=== PATIENT | male | born 1980 | race Caucasian/White ===

== ENCOUNTER 2023-08-25 12:29 | Outpatient (CLI) | payer MEDICAID ==
[2023-08-25] MEDS ORDERED: BARIUM SULFATE 450 ML BOTTLE PO ONE (14:44)
[2023-08-25] MEDS ORDERED: iohexoL-300 100 ML VIAL IVP ONE (14:44)
--- NOTE | 2023-08-25 15:26 | CT Report ---
PROCEDURE: ABDOMEN/PELVIS W INDICATIONS: RLQ ABD PAIN CONTRAST: 100ml omni 300 TECHNIQUE: After the administration of contrast, 5 mm thick sections acquired from the diaphragms to the symphys is. 5 mm thick coronal and sagittal reformats were acquired. For radiation dose reduction, the foll owing was used: automated exposure control, adjustment of mA and/or kV according to patient size. COMPARISON: 07/04/2015 FINDINGS: Image quality: Excellent. Lung bases and heart: Unremarkable. Liver: No solid mass. Gallbladder and biliary tree: Spleen: No splenomegaly. Pancreas: No pancreatic ductal dilation. Adrenals: No adrenal nodule. Kidneys and ureters: No hydronephrosis. No renal cystic lesion which requires follow up. No solid mas s. Bowel and peritoneum: No bowel distension. No pathologic free fluid. The appendix is normal. Lymph nodes: No central or retroperitoneal adenopathy. Vessels: No infrarenal aortic aneurysm. PELVIS Reproductive organs: Unremarkable. Bladder: No abnormal wall thickening, accounting for underdistension. Pelvic lymph nodes: No pelvic adenopathy by size criteria. Bones: No aggressive osseous abnormality. Other: No significant ventral or inguinal hernia. IMPRESSION: 1. No acute abnormality of the abdomen or pelvis. 2. Normal appendix. 3. No nephroureterolithiasis. Reviewed by: Jorden Navarro on 08/25/2023 3:24 PM PDT Approved by: Jorden Navarro on 08/25/2023 3:24 PM PDT Station ID: [id number]
== END 2023-08-25 12:30 | disposition home or self-care (01) ==
LOC: DI 12:29
PROVIDERS: ATTEND Physician Assistant
DX: R10.31 Right lower quadrant pain (principal)
CPT/HCPCS: 74177; A9270; Q9967

== ENCOUNTER 2023-09-01 08:00 | Outpatient (CLI) | payer MEDICAID ==
[2023-09-01 19:48] LABS: FECAL OCCULT BLOOD (FIT) NEGATIVE (NEGATIVE)
== END 2023-09-01 23:59 | disposition home or self-care (01) ==
LOC: LAB.N 08:00
PROVIDERS: ATTEND Physician Assistant
DX: R10.31 Right lower quadrant pain (principal)
CPT/HCPCS: 82274; 83993

== ENCOUNTER 2024-02-09 19:02 | Outpatient (CLI) | payer MEDICAID ==
--- NOTE | 2024-02-10 11:58 | Ultrasound Report ---
PROCEDURE: Testicle INDICATIONS: RLQ PAIN TECHNIQUE: Real-time scanning was performed of the scrotum and testicles, with image documentation. Color and p ulse Doppler interrogation was performed of both testicles. COMPARISON: CT abdomen and pelvis 08/25/2023. FINDINGS: Right: Testicle is normal in size at 4.4 x 2.2 x 2.6 cm, and homogenous in echotexture. Epididymis is normal in overall size and morphology. Trace hydrocele, likely within normal limits. No varicocel es. Overlying scrotal skin is normal in thickness. Left: Testicle is normal in size at 4.4 x 2.2 x 2.7 cm, and homogeneous in echotexture. Epididymis is normal in overall size and morphology. Trace hydrocele, likely within normal limits. No varicocel es. Overlying scrotal skin is normal in thickness. Doppler: Color and pulse Doppler demonstrate normal and symmetric arterial flow in both testicles. IMPRESSION: Normal appearance of the testes and epididymides. No cause for patient's pain is identified. Reviewed by: Juanjose Parks MD on 02/10/2024 11:56 AM PDT Approved by: Juanjose Parks MD on 02/10/2024 11:56 AM PDT Station ID: [id number]
== END 2024-02-09 19:03 | disposition home or self-care (01) ==
LOC: DI 19:02
PROVIDERS: ATTEND Physician Assistant
DX: R10.31 Right lower quadrant pain (principal)